=== PATIENT | female | born 1950 | race Caucasian/White ===

== ENCOUNTER 2024-03-20 16:46 | Emergency (ER) | payer MEDICARE ==
[~2024-03-20] VITALS: Ht 162.6 cm; Wt 104.3 kg
[~2024-03-20 16:46] MED LIST: ALBU90OI INH; ALLO300 PO; DIPH50 PO; FEXPSEER PO; LEVSOD100 PO; MAGCIT300 PO
[2024-03-20 17:11] VITALS: BP 183/75
[2024-03-20] MEDS ORDERED: Pseudoephedrine HCl 30 MG Tab PO ONE (17:35)
== END 2024-03-20 18:01 | disposition home or self-care (01) ==
LOC: ER 16:46
DX: H66.91 Otitis media, unspecified, right ear (principal); E03.9 Hypothyroidism, unspecified; J45.909 Unspecified asthma, uncomplicated; Z79.899 Other long term (current) drug therapy
CPT/HCPCS: 99282; A9270